=== PATIENT | female | born 2000 | race Caucasian/White ===

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

== ENCOUNTER 2022-04-21 20:55 | Emergency (ER) | payer BC, SELFPAY ==
[2022-04-21 21:17] VITALS: BP 141/96; PULSE 136; RESP 20; TEMP 37.1; O2SAT 97
--- NOTE | 2022-04-21 21:50 | ED.ANXIETY ---
HPI - Anxiety General Chief Complaint: Anxiety Stated Complaint: anxiety - unable to sleep Time Seen by Provider: 04/21/22 21:30 History of Present Illness HPI narrative: Patient is a 22-year-old female here for evaluation of anxiety over the past 3 days. Patient states that she has been having numerous life stressors recently, including high medical bills and returning back to school. She states that the stressors have made her feel very anxious, leading her to have multiple panic attacks over the past several days. She states that she has lost sleep due to these panic attacks. Denies suicidal or homicidal ideation. not currently on anxiety meds. Related Data Home Medications Medication Instructions Recorded Confirmed etonogestrel 68 mg subdermal subdermal 10/29/21 implant (Nexplanon) norethindrone 1 mg-ethinyl tablet 10/29/21 estradiol 20 mcg (21)-iron 75 mg (7) tablet (09/22 (28)) Allergies Allergy/AdvReac Type Severity Reaction Status Date / Time No Known Allergies Allergy Verified 04/21/22 21:22 Review of Systems Review of Systems: Gen: Denies fevers or chills Eyes: Denies eye pain or visual change ENT: Denies congestion Respiratory: Denies shortness of breath or cough CV: Denies chest pain or palpitations GI: Denies abdominal pain nausea, emesis or diarrhea denies burning, urgency, frequency or hematuria Musculoskeletal: Denies back pain or muscle pain Neuro: Denies numbness, tingling, weakness or focal weakness Psych: Reports anxiety, denies suicidal or homicidal ideation Skin: Denies rash Except as documented, all other systems reviewed and negative [facility] Past Medical History Medical History 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 UTI (urinary tract infection) recurring Family History Family History Grandparent Diabetes mellitus maternal and paternal grandfather Breast cancer paternal grandmother Mother Breast cancer Hypertension Social History Social History Smoking status: Never smoker Alcohol intake: never Substance use: never Substance use type: does not use Additional living arrangements comments: with boyfriend Additional occupation/education comments: [employer] Gender identity (if verbalized by the patient): Female Sexual Orientation (if Verbalized by the Patient): Bisexual Exam Narrative: APPEARANCE: Anxious appearing. Head: Normocephalic and atraumatic. EYES: PERRLA/EOMI, conjunctivae clear NOSE: No nasal drainage EARS: External ear normal in appearance THROAT: Oropharynx is clear. Mucous membranes are moist. NECK: Supple. No adenopathy, no masses. RESPIRATORY: Airway patent, respirations nonlabored. Clear to auscultation bilaterally, no rales, rhonchi, wheezing. CARDIOVASCULAR: Tachycardic. Regular rhythm without murmurs, rubs, or gallops. ABDOMINAL: Normoactive bowel sounds. Soft, nontender, nondistended. No rebound tenderness or guarding. MUSCULOSKELETAL: Extremities are warm and well-perfused. Moves all extremities well. No edema. NEURO: Normal speech. No focal neurologic deficits. SKIN: Skin is warm and dry. No rashes. PSYCHIATRIC: Anxious mood. Course Vital Signs Vital signs: Vital Signs Temperature 98.7 F 04/21/22 21:17 Pulse Rate 136 H 04/21/22 21:17 Respiratory Rate 20 04/21/22 21:17 Blood Pressure 141/96 H 04/21/22 21:17 Pulse Oximetry 97 04/21/22 21:17 Oxygen Delivery Room Air 04/21/22 21:17 Temperature 98.7 F 04/21/22 21:17 Pulse Rate 115 H 04/21/22 22:57 Respiratory Rate 14 04/21/22 22:57 Blood Pressure 123/86 04/21/22 22:57 Pulse Oximetry 100 04/21/22 22:57 Oxygen Delivery Room Air 04/21/22 21:17 MDM - Anxiety MDM Narrative Medical decision making narrative: 22-y
[2022-04-21] MEDS: ONDANSETRON HCL ODT 4 MG TABLET PO (21:59)
[2022-04-21] MEDS: LORazepam (*CRX) 0.5 MG TABLET PO (21:59)
[2022-04-21 22:57] VITALS: BP 123/86; PULSE 115; RESP 14; O2SAT 100
--- NOTE | 2022-04-21 22:59 | ECG_ITS ---
Measurements Intervals Standard Rate: 106 P: 61 NC: 128 QRS: 70 QRSD: 78 T: 53 QT: 330 QTc: 440 Interpretive Statements SINUS TACHYCARDIA ABNORMAL RHYTHM ECG NO PREVIOUS ECG AVAILABLE FOR COMPARISON Electronically Signed On 04-22-2022 13:36:44 CDT by Lisa Jeter M.D.
== END 2022-04-21 23:36 | disposition home or self-care (01) ==
LOC: ANHED 23:24
PROVIDERS: Emergency Provider Emergency Medicine
DX: F41.9 Anxiety disorder, unspecified (principal); R00.0 Tachycardia, unspecified
CPT/HCPCS: 81025; 93005; 99283; A9270

== ENCOUNTER 2022-07-17 13:28 | Emergency (ER) | payer BC, SELFPAY ==
[2022-07-17 13:31] VITALS: BP 134/84; PULSE 98; RESP 15; TEMP 36.9; O2SAT 100
[2022-07-17 13:44] LABS: Basophils Percent Auto 0.8 % (0.2-1.2); Eosinophils Absolute Auto 0.1 K/mm3 (0-0.3); Eosinophils Percent Auto 1.9 % (0-4.4); Hematocrit 42.1 % (37.0-47.0); Hemoglobin 14.1 g/dL (12.0-15.0); Immature Granulocyte Absolute 0.02 K/mm3 (0.00-0.031); Immature Granulocyte Percent A 0.4 % (0-0.5); Lymphocytes Absolute Auto 1.91 K/mm3 (0.9-3.2); Lymphocytes Percent Auto 35.9 % (18.3-44.2); Mean Corpuscular HGB Conc 33.5 g/dl (32-36); Mean Corpuscular Hemoglobin 29.6 pg (26-34); Mean Corpuscular Volume 88.3 fl (80-100); Mean Platelet Volume 9.1 fl (7.4-10.4); Monocytes Absolute Auto 0.4 K/mm3 (0.1-0.6); Monocytes Percent Auto 6.6 % (2.6-8.5); Neutrophils Absolute Auto 2.9 K/mm3 (1.3-6.7); Neutrophils Percent Auto 54.4 % (45.5-73.1); Platelet Count Result 335 k/mm3 (150-375); Red Blood Count 4.77 M/mm3 (4.2-5.4); Red Cell Distribution Width 11.9 % (11.5-14.5); White Blood Count 5.3 K/mm3 (4.5-10.0)
[2022-07-17 14:02] LABS: Alanine Aminotransferase 18 U/L (6-35); Albumin Level 4.6 g/dL (3.5-5.1); Alkaline Phosphatase 102 U/L (38-126); Anion Gap 13 mmol/L (8-16); Aspartate Amino Transferase 25 U/L (14-36); Bilirubin,Total 1.9 mg/dL (0.2-1.3); Blood Urea Nitrogen 7 mg/dL (7-17); Calcium 8.9 mg/dL (8.4-10.2); Carbon Dioxide 26 mmol/L (22-30); Chloride 102 mmol/L (98-107); Estimated CRCL calculation 101 ml/min; Estimated Glomerular Filt Rate > 60; Glucose 93 mg/dL (65-110); Lipase 74 U/L (23-300); Potassium 3.8 mmol/L (3.4-5.0); Sodium 141 mmol/L (137-145)
--- NOTE | 2022-07-17 15:17 | ED.NAVMDI ---
HPI - Nausea/Vomiting/Diarrhea General Chief complaint: Nausea/Vomiting/Diarrhea Stated complaint: vomiting Time Seen by Provider: 07/17/22 15:02 Source: RN notes reviewed History of Present Illness HPI Narrative: Patient presents emergency room from home for nausea vomiting diarrhea. Patient states symptoms began 2 days ago. States has had numerous episodes of nausea vomiting as well as diarrhea states has been associate abdominal pain described as cramping diffusely throughout the abdomen. She denies any fevers or chills chest pain or shortness of breath. States that she did try taking her Zofran at home with minimal relief this morning states that she has a Zofran for history of anxiety attacks that make her nauseous Related Data Home Medications Medication Instructions Recorded Confirmed etonogestrel 68 mg subdermal subdermal 10/29/21 implant (Nexplanon) norethindrone 1 mg-ethinyl tablet 10/29/21 estradiol 20 mcg (21)-iron 75 mg (7) tablet (09/22 (28)) Allergies Allergy/AdvReac Type Severity Reaction Status Date / Time No Known Allergies Allergy Verified 07/17/22 15:27 Review of Systems Review of Systems: Gen.: Denies fevers or chills ENT: Denies congestion Respiratory: Denies shortness of breath or cough CV: Denies chest pain or palpitations GI: See HPI denies burning, urgency, frequency or hematuria Musculoskeletal: Denies back pain or muscle pain Neuro: Denies numbness, tingling, weakness or focal weakness Skin: Denies rash Except as documented, all other systems reviewed and negative [facility] Past Medical History Medical History 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 UTI (urinary tract infection) recurring Family History Family History Grandparent Diabetes mellitus maternal and paternal grandfather Breast cancer paternal grandmother Mother Breast cancer Hypertension Social History Social History Smoking status: Never smoker Alcohol intake: never Substance use: never Substance use type: does not use Additional living arrangements comments: with boyfriend Additional occupation/education comments: [employer] Gender identity (if verbalized by the patient): Female Sexual Orientation (if Verbalized by the Patient): Bisexual Exam Narrative: APPEARANCE: No acute distress, nontoxic, resting in bed HEENT: Normocephalic, atraumatic, OMM RESPIRATORY: No respiratory distress, clear to auscultation bilaterally with no rhonchi wheezing or rales CARDIOVASCULAR: RRR s murmur ABDOMINAL: Soft nondistended diffusely tender to palpation no rebound or guarding MUSCULOSKELETAl: Moves all extremities. No clubbing, cyanosis or edema. NEURO: Awake and alert. Following commands, speech normal, no focal deficits SKIN:: Warm, dry. Normal Color PSYCHIATRIC: Normal affect/mood Course Course Emergency Course: Patient states he is feeling much better at this time states abdominal pain is resolved patient able to eat and drink in ED with no emesis Patient states that they are feeling much better at this time. States abdominal pain has resolved. Repeat abdominal exam shows the patient's abdomen to be soft and nontender. Discussed with patient results of workup and diagnosis. Discussed need for follow-up with primary care physician, reasons to return to the emergency department in proper use of medication. Patient understands and agrees to current treatment plan Vital Signs Vital signs: Vital Signs Temperature 98.5 F 07/17/22 13:31 Pulse Rate 98 07/17/22 13:31 Respiratory Rate 15 07/17/22 13:31 Blood Pressure 134/84 07/17/22 13:31 Pulse Oximetry 100 07/17/22 13:31 Oxygen Delivery Room Air 07/17/22 13:31 Temperature 98.5 F 07/17/22 13:31 Pulse Rate 84
[2022-07-17] MEDS: SODIUM CHLORIDE 0.9% IV 1,000 ML 999 ML IV CONT (15:32)
[2022-07-17] MEDS: FAMOTIDINE 20 MG/2 ML VIAL IV PUSH (15:32)
[2022-07-17] MEDS: KETOROLAC 30 MG/ML VIAL (*BKC) IV PUSH (15:32)
[2022-07-17] MEDS: ONDANSETRON INJ 4 MG/2 ML VIAL IV PUSH (15:33)
[2022-07-17 15:46] LABS: Appearance Urine Clear (Clear); Bilirubin Urine Negative (Negative); Blood Urine Negative (Negative); Color Urine Yellow (Yellow); Glucose Urine UA Negative (Negative); Ketones Urine Negative (Negative); Leukocyte Esterase Ur Negative LEU/UL (Negative); Nitrate Urine Negative (Negative); Protein Urine Negative (Negative); Specific Grav Ur 1.015 (1.001-1.035); Urobilinogen Urine 0.2 mg/dL (<2.0)
[2022-07-17 16:03] LABS: Add Urine Microscopic? NO
[2022-07-17 16:23] VITALS: BP 103/54; BP 122/81; PULSE 80; PULSE 84
[2022-07-17 16:25] VITALS: BP 114/84; PULSE 84
--- NOTE | 2022-07-17 18:01 | PC.NURSE ---
Tolerated juice and crackers without vomiting.
== END 2022-07-17 18:32 | disposition home or self-care (01) ==
PROVIDERS: Emergency Provider Emergency Medicine
DX: R11.2 Nausea with vomiting, unspecified (principal); R10.84 Generalized abdominal pain; Z87.440 Personal history of urinary (tract) infections
CPT/HCPCS: 36415; 80053; 81003; 81025; 83690; 85025; 87804; 96361; 96374; 96375; 99284; J1885; J2405; J7030

== ENCOUNTER 2022-09-16 13:14 | Emergency (ER) | payer BC, SELFPAY ==
--- NOTE | ~2022-09-16 | CT_ITS ---
EXAMINATION: CT abdomen pelvis w con DATE: 09/16/2022 14:48 INDICATION: Abdominal pain and fever with nausea and vomiting TECHNIQUE: Computed tomography (CT) of the abdomen and pelvis was performed with 100 mL Omnipaque-350 intravenous contrast. Automated exposure control and iterative reconstruction technique were employe d. The dose-length product was 240.33 mGy-cm. COMPARISON: 10/29/2021 FINDINGS: Lung bases are clear. Heart size is normal. No pericardial or pleural effusion. Liver, gallbladder, p ancreas, left kidney and bilateral adrenal glands are normal. A couple 2-3 mm calcification within a 1 cm right renal cyst. Likely benign 1 cm low-attenuation splenic lesion with no significant change s kelle 12/09/2020 most likely a hemangioma. No abnormal bowel thickening or obstruction. Normal appendix. Latter, anteverted uterus and bilateral adnexa are unremarkable. Small amount of likely physiologic free fluid in the cul-de-sac. No abscess or free intraperitoneal gas. No pathologically enlarged abdo melba or pelvic lymphadenopathy. IMPRESSION: 1. Small amount of likely physiologic free fluid in the pelvis. No acute intra-abdominal/pelvic proce ss. 2. A couple 2-3 mm calcifications within a 1 cm right renal cyst. Reviewed, dictated and finalized at location A. CUTTER IMPRESSION: 1. Small amount of likely physiologic free fluid in the pelvis. No acute intra- abdominal/pelvic process. 2. A couple 2-3 mm calcifications within a 1 cm right renal cyst.
[2022-09-16 13:16] VITALS: BP 126/87; PULSE 93; RESP 20; TEMP 36.7; O2SAT 99
[2022-09-16 13:23] VITALS: BP 123/68; PULSE 107; RESP 15; O2SAT 100
--- NOTE | 2022-09-16 13:26 | ECG_ITS ---
Measurements Intervals [place] Rate: 92 P: 43 RI: 142 QRS: 55 QRSD: 77 T: 56 QT: 347 QTc: 430 Interpretive Statements SINUS RHYTHM BASELINE ARTIFACT- I, II, III, AVL NORMAL ECG COMPARED TO ECG 04/21/2022 23:08:17 SINUS RHYTHM NOW PRESENT Electronically Signed On 09-16-2022 16:11:42 OPERATOR ENGINEER by Marcos Sosa D.O.
[2022-09-16 13:41] LABS: Basophils Percent Auto 0.5 % (0.2-1.2); Eosinophils Percent Auto 0.1 % (0-4.4); Hemoglobin 14.3 g/dL (12.0-15.0); Immature Granulocyte Absolute 0.02 K/mm3 (0.00-0.031); Immature Granulocyte Percent A 0.2 % (0-0.5); Lymphocytes Absolute Auto 1.12 K/mm3 (0.9-3.2); Lymphocytes Percent Auto 13.4 % (18.3-44.2); Mean Corpuscular HGB Conc 33.3 g/dl (32-36); Mean Corpuscular Volume 87.2 fl (80-100); Mean Platelet Volume 9.3 fl (7.4-10.4); Monocytes Absolute Auto 0.3 K/mm3 (0.1-0.6); Monocytes Percent Auto 3.9 % (2.6-8.5); Neutrophils Absolute Auto 6.8 K/mm3 (1.3-6.7); Neutrophils Percent Auto 81.9 % (45.5-73.1); Platelet Count Result 321 k/mm3 (150-375); Red Blood Count 4.93 M/mm3 (4.2-5.4); Red Cell Distribution Width 11.6 % (11.5-14.5); White Blood Count 8.4 K/mm3 (4.5-10.0)
[2022-09-16 13:51] LABS: Alanine Aminotransferase 20 U/L (6-35); Albumin Level 4.7 g/dL (3.5-5.1); Alkaline Phosphatase 100 U/L (38-126); Anion Gap 5 mmol/L (8-16); Aspartate Amino Transferase 26 U/L (14-36); Bilirubin,Total 0.8 mg/dL (0.2-1.3); Blood Urea Nitrogen 6 mg/dL (7-17); Calcium 9.3 mg/dL (8.4-10.2); Carbon Dioxide 28 mmol/L (22-30); Chloride 101 mmol/L (98-107); Estimated CRCL calculation 118 ml/min; Estimated Glomerular Filt Rate > 60; Glucose 109 mg/dL (65-110); Lipase 66 U/L (23-300); Potassium 3.7 mmol/L (3.4-5.0); Sodium 134 mmol/L (137-145)
[2022-09-16 13:54] VITALS: BP 107/69; PULSE 93; RESP 18; O2SAT 99
[2022-09-16 14:01] VITALS: BP 112/70; PULSE 90; RESP 17; O2SAT 99
--- NOTE | 2022-09-16 14:09 | ED.NAVMDI ---
HPI - Nausea/Vomiting/Diarrhea General Chief complaint: Nausea/Vomiting/Diarrhea Stated complaint: nausea vomiting Time Seen by Provider: 09/16/22 13:16 Source: patient Mode of arrival: ambulatory Limitations: no limitations History of Present Illness HPI Narrative: Patient is a 22-year-old female who presents the ED with report of N/V/D. Patient reports she woke up at 2 AM this morning with nausea and vomiting. She has had about 4 episodes of vomiting and several more episodes of diarrhea. Denied any rectal bleeding. She does report having diffuse abdominal pain associated with the vomiting episodes. Denied any known bad food exposure, but did eat out at a restaurant last night. She also reports having a temperature of 100 ?F this morning, anxiety, and palpitations associated with her anxiety. Denies any chest pain or difficulty breathing. Denies urinary symptoms, cough or cold symptoms. Patient does have Hx of LEEANNE and panic disorder. She takes Lexapro. Related Data Home Medications Medication Instructions Recorded Confirmed etonogestrel 68 mg subdermal subdermal 10/29/21 implant (Nexplanon) escitalopram oxalate 20 mg tablet 20 mg PO DAILY 07/26/22 gabapentin 600 mg tablet 900 mg PO QHS 07/26/22 Allergies Allergy/AdvReac Type Severity Reaction Status Date / Time No Known Allergies Allergy Verified 09/16/22 13:20 Review of Systems Review of Systems: CONSTITUTIONAL: See HPI. ENT: Denies rhinorrhea, congestion, sore throat. CARDIOVASCULAR: See HPI. RESPIRATORY: Denies cough or dyspnea. GASTROINTESTINAL: See HPI. GENITOURINARY: Denies dysuria or hematuria. MUSCULOSKELETAL: Denies back pain, joint pain, or myalgia. PSYCHIATRIC: See HPI. 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 UTI (urinary tract infection) recurring Surgical History Surgical History (Updated 09/16/22 @ 14:14 by Rola Deluca PA-C) No pertinent past surgical history Family History Family History Grandparent Diabetes mellitus maternal and paternal grandfather Breast cancer paternal grandmother Mother Breast cancer Hypertension Social History Social History Smoking status: Never smoker Alcohol intake: never Substance use: never Substance use type: does not use Additional living arrangements comments: with boyfriend Additional occupation/education comments: [employer] Gender identity (if verbalized by the patient): Female Sexual Orientation (if Verbalized by the Patient): Bisexual Exam Narrative: GENERAL: Well appearing, well-nourished, non-toxic, in no acute distress. HEAD: Normocephalic, atraumatic. NECK: Supple. No adenopathy, no masses. RESPIRATORY: Airway patent, respirations nonlabored. Clear to auscultation bilaterally, no rales, rhonchi, wheezing. CARDIOVASCULAR: Regular rate and rhythm without murmurs, rubs, or gallops. Radial pulses 2+ and equal bilaterally. ABDOMINAL: Soft, minimal lower abdominal tenderness, nondistended, no hepatosplenomegaly. Normoactive BS. MUSCULOSKELETAL: Moves all extremities. Strength/ROM intact without gross deformities. SKIN: Warm, dry, normal color. No rashes. NEURO: A&O X3. Speech clear. Cranial nerves II-XII grossly intact. Steady gait. No ataxic movements. PSYCHIATRIC: Mildly anxious. Normal interaction. Course Vital Signs Vital signs: Vital Signs Temperature 98.1 F 09/16/22 13:16 Pulse Rate 93 09/16/22 13:16 Respiratory Rate 20 09/16/22 13:16 Blood Pressure 126/87 09/16/22 13:16 Pulse Oximetry 99 09/16/22 13:16 Oxygen Delivery Room Air 09/16/22 13:16 [place]
[2022-09-16] MEDS: ONDANSETRON INJ 4 MG/2 ML VIAL IV PUSH ×2 (14:13→15:46)
[2022-09-16] MEDS: SODIUM CHLORIDE 0.9% IV 1,000 ML 999 ML IV CONT (14:13)
[2022-09-16 14:18] LABS: Appearance Urine Clear (Clear); Bilirubin Urine Negative (Negative); Blood Urine Negative (Negative); Color Urine Yellow (Yellow); Glucose Urine UA Negative (Negative); Ketones Urine Negative (Negative); Leukocyte Esterase Ur Negative LEU/UL (Negative); Nitrate Urine Negative (Negative); Protein Urine Negative (Negative); Specific Grav Ur 1.015 (1.001-1.035); Urobilinogen Urine 0.2 mg/dL (<2.0)
[2022-09-16 14:32] LABS: Add Urine Microscopic? NO; Mucus Urine Rare /lpf; RBC Urine 0-2 /hpf (0-2); Squamous Epithelial Cell Urine Rare /hpf (Few); WBC Urine 0-3 /hpf
[2022-09-16 14:35] LABS: Magnesium 1.8 mg/dL (1.6-2.3)
[2022-09-16 15:07] LABS: Influenza A QL RT-PCR Negative (Negative); Influenza B QL RT-PCR Negative (Negative); SARS-CoV-2 RNA PCR Negative
[2022-09-16 16:33] VITALS: BP 110/71; PULSE 93; RESP 16; O2SAT 100
== END 2022-09-16 16:40 | disposition home or self-care (01) ==
PROVIDERS: Emergency Provider Physician Assistant
DX: K52.9 Noninfective gastroenteritis and colitis, unspecified (principal); F41.1 Generalized anxiety disorder; Z20.822 Contact with and (suspected) exposure to COVID-19; F41.0 Panic disorder [episodic paroxysmal anxiety]; Z87.440 Personal history of urinary (tract) infections
CPT/HCPCS: 36415; 74177; 80053; 81003; 81025; 83690; 83735; 85025; 87636; 93005; 96361; 96374; 96375; 99284; J2405; J7030; Q9967

== ENCOUNTER 2022-12-28 22:53 | Emergency (ER) | payer BC, SELFPAY ==
--- NOTE | ~2022-12-28 | XR_ITS ---
PA, oblique, and lateral views of the right fourth finger CLINICAL HISTORY: Laceration FINDINGS: No fracture or dislocation seen. Osseous alignment is anatomic. Joint spaces are preserved. Soft tissues are unremarkable. IMPRESSION: Unremarkable exam. Reviewed, dictated and finalized at location M. IMPRESSION: Unremarkable exam.
[2022-12-28 22:59] VITALS: BP 144/95; PULSE 113; RESP 16; TEMP 36.5; O2SAT 98
[2022-12-28] MEDS: TETANUS,DIPHTHERIA,AC PERTUSSIS ADULT (0.5 ML) BOOSTRIX IM (23:21)
--- NOTE | 2022-12-28 23:46 | ED.WOUNDLAC ---
HPI - Wound/Laceration General Chief Complaint: Wound/Laceration Stated Complaint: finger laceration Time Seen by Provider: 12/28/22 23:09 Source: patient Mode of arrival: ambulatory Limitations: no limitations History of Present Illness HPI narrative: Patient is a 22-year-old female who presents ED with report of a laceration to her right 4th digit. Patient reports she was doing dishes and washing her snuff blender when she accidentally cut herself on the blade of the snuff blender. She sustained a small laceration to the ulnar lateral surface of her right 4th digit, proximal phalanx region. No significant active bleeding upon my evaluation. Denies any numbness or tingling. Denies any other injuries. Patient unsure of last tetanus shot. Related Data Home Medications Medication Instructions Recorded Confirmed etonogestrel 68 mg subdermal subdermal 10/29/21 implant (Nexplanon) escitalopram oxalate 20 mg tablet 20 mg PO DAILY 07/26/22 gabapentin 600 mg tablet 900 mg PO QHS 07/26/22 Allergies Allergy/AdvReac Type Severity Reaction Status Date / Time No Known Allergies Allergy Verified 12/28/22 23:03 Review of Systems Review of Systems: CONSTITUTIONAL: Denies fever, chills, or sweats. SKIN: See HPI. NEUROLOGIC: Denies tingling, numbness, or weakness. 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 UTI (urinary tract infection) recurring Surgical History Surgical History (Updated 09/16/22 @ 14:14 by Rola Deluca PA-C) No pertinent past surgical history Family History Family History Grandparent Diabetes mellitus maternal and paternal grandfather Breast cancer paternal grandmother Mother Breast cancer Hypertension Social History Social History Smoking status: Never smoker Alcohol intake: never Substance use: never Substance use type: does not use Living arrangements: other Additional living arrangements comments: with boyfriend Occupation/Education: student Additional occupation/education comments: [email or web address] Gender identity (if verbalized by the patient): Female Sexual Orientation (if Verbalized by the Patient): Bisexual Exam Narrative: GENERAL: Well appearing, well-nourished, non-toxic, in no acute distress. HEAD: Normocephalic, atraumatic. NECK: Supple. No adenopathy, no masses. RESPIRATORY: Airway patent, respirations nonlabored. CARDIOVASCULAR: Regular rate and rhythm without murmurs, rubs, or gallops. Radial pulses 2+ and equal bilaterally. MUSCULOSKELETAL: Moves all extremities. Strength/ROM intact without gross deformities. SKIN: Warm, dry, normal color. No rashes. Approximately 1 cm linear laceration to lateral edge of right fourth digit proximal phalanx. No active bleeding. No foreign body noted. NEURO: A&O X3. Speech clear. Cranial nerves II-XII grossly intact. Steady gait. No ataxic movements. PSYCHIATRIC: Appropriate mood and affect. Normal interaction. Course Vital Signs Vital signs: Vital Signs Temperature 97.7 F 12/28/22 22:59 Pulse Rate 113 H 12/28/22 22:59 Respiratory Rate 16 12/28/22 22:59 Blood Pressure 144/95 H 12/28/22 22:59 Pulse Oximetry 98 12/28/22 22:59 Oxygen Delivery Room Air 12/28/22 22:59 Temperature 97.7 F 12/28/22 22:59 Pulse Rate 96 12/29/22 00:27 Respiratory Rate 16 12/29/22 00:27 Blood Pressure 121/73 12/29/22 00:27 Pulse Oximetry 99 12/29/22 00:27 Oxygen Delivery Room Air 12/28/22 22:59 Procedures Laceration Laceration 1: Date: 12/29/22 Time: 00:00 Site: hand (4th digit) Side (If ap
[2022-12-29 00:27] VITALS: BP 121/73; PULSE 96; RESP 16; O2SAT 99
--- NOTE | 2022-12-29 00:27 | PC.NURSE ---
Bandaid applied over sutures.
== END 2022-12-29 00:28 | disposition home or self-care (01) ==
LOC: ANHED 12-29 00:10
PROVIDERS: Emergency Provider Physician Assistant
DX: S61.214A Laceration without foreign body of right ring finger without damage to nail, initial encounter (principal); Z23 Encounter for immunization; F41.1 Generalized anxiety disorder; Z87.440 Personal history of urinary (tract) infections; W29.0XXA Contact with powered kitchen appliance, initial encounter; Y93.G1 Activity, food preparation and clean up
CPT/HCPCS: 12001; 73140; 90471; 90715; 99283